=== PATIENT | female | born 1945 | race Caucasian/White ===

== ENCOUNTER 2017-09-08 09:22 | Emergency (ER) | payer OTHER, MEDICARE ==
[~2017-09-08] VITALS: Ht 154.9 cm; Wt 70.3 kg
[~2017-09-08 09:22] MED LIST: GABA100 PO; LISI20 PO; NITR100CA PO; Norco 5-325 Ta1 EACH PO; OMEP20ER PO; PHENA100 PO; PRAV20 PO
[2017-09-08] MEDS ORDERED: ATOR10 PO (09:34)
[2017-09-08 10:30] LABS: Alanine Aminotransfer (ALT/SGP 17 U/L (12-78); Albumin, Blood 3.1 g/dL (3.4-5.0); Albumin/Globulin Ratio 0.7 (0.8-1.8); Alk Phos 57 U/L (50-136); Anion Gap 6 mmol/L (6-16); Aspartate Aminotrans (AST/SGOT 14 U/L (12-37); Bilirubin, Total 0.5 mg/dL (0.1-1.0); Blood Urea Nitrogen 12 mg/dL (8-24); Bun/Creatinine Ratio 13.3 (12.0-20.0); CO2, Blood 27 mmol/L (21-32); Calcium, Blood 9.1 mg/dL (8.5-10.1); Chloride, Blood 104 mmol/L (98-108); Globulin, Blood 4.4 g/dL (2.2-4.0); Glomerular Filtration Rate >60 (60-); Glucose, Blood 142 mg/dL (70-99); Potassium, Blood 3.8 mmol/L (3.5-5.5); Sodium, Blood 137 mmol/L (136-145); Total Protein, Blood 7.5 g/dL (6.4-8.2)
[2017-09-08 12:26] LABS: BASOPHILS ABSOLUTE AUTO 0.07 K/mm3 (0.00-0.23); BASOPHILS PERCENT AUTO 1 % (0-2); EOSINOPHILS ABSOLUTE AUTO 0.04 K/mm3 (0.00-0.68); EOSINOPHILS PERCENT AUTO 1 % (0-6); Hematocrit 42.4 % (33.0-51.0); Hemoglobin 13.6 g/dL (11.5-16.0); IMMATURE GRAN ABSOLUTE AUTO 0.04 K/mm3 (0.00-0.10); IMMATURE GRAN PERCENT AUTO 1 % (0-1); LYMPHOCYTES ABSOLUTE AUTO 1.56 K/mm3 (0.84-5.20); LYMPHOCYTES PERCENT AUTO 20 % (21-46); MONOCYTES ABSOLUTE AUTO 0.76 K/mm3 (0.16-1.47); MONOCYTES PERCENT AUTO 10 % (4-13); Mean Corpuscular HGB 29.7 pg (26.0-34.0); Mean Corpuscular HGB Conc 32.1 g/dL (31.5-36.5); Mean Corpuscular Volume 93 fL (80-100); Mean Platelet Volume 10.7 fL (9.1-12.4); NEUTROPHILS ABSOLUTE AUTO 5.17 K/mm3 (1.96-9.15); NEUTROPHILS PERCENT AUTO 68 % (41-73); Platelet Count 244 K/mm3 (150-400); RDW Coefficient Variation 13.8 % (11.7-14.2); RDW Standard Deviation 47.4 fL (35.1-46.3); Red Blood Cell Count 4.58 M/mm3 (3.80-5.20); White Blood Cell Count 7.64 K/mm3 (4.00-11.30)
== END 2017-09-08 13:35 | disposition home or self-care (01) ==
LOC: ER 09:22
PROVIDERS: Emergency Medicine
DX: R53.1 Weakness (principal); R06.02 Shortness of breath; I10 Essential (primary) hypertension; Z79.899 Other long term (current) drug therapy
CPT/HCPCS: 36415; 71046; 80053; 85025; 85379; 93005; 93010; 99283

== ENCOUNTER 2019-07-09 22:37 | Emergency (ER) | payer OTHER, MEDICARE ==
[~2019-07-09] VITALS: Ht 154.9 cm; Wt 69.8 kg
[~2019-07-09 22:37] MED LIST changes: +ATOR10 PO; +PRAV20; +Protonix40 MG PO
[2019-07-10 00:03] LABS: BASOPHILS ABSOLUTE AUTO 0.05 K/mm3 (0.00-0.23); BASOPHILS PERCENT AUTO 0 % (0-2); EOSINOPHILS ABSOLUTE AUTO 0.01 K/mm3 (0.00-0.68); EOSINOPHILS PERCENT AUTO 0 % (0-6); Hematocrit 45.3 % (33.0-51.0); Hemoglobin 14.4 g/dL (11.5-16.0); IMMATURE GRAN ABSOLUTE AUTO 0.08 K/mm3 (0.00-0.10); IMMATURE GRAN PERCENT AUTO 0 % (0-1); LYMPHOCYTES ABSOLUTE AUTO 1.31 K/mm3 (0.84-5.20); LYMPHOCYTES PERCENT AUTO 7 % (21-46); MONOCYTES PERCENT AUTO 9 % (4-13); Mean Corpuscular HGB Conc 31.8 g/dL (31.5-36.5); Mean Corpuscular Volume 94 fL (80-100); Mean Platelet Volume 10.4 fL (9.1-12.4); NEUTROPHILS ABSOLUTE AUTO 15.81 K/mm3 (1.96-9.15); NEUTROPHILS PERCENT AUTO 83 % (41-73); Platelet Count 244 K/mm3 (150-400); RDW Coefficient Variation 13.6 % (11.7-14.2); RDW Standard Deviation 47.8 fL (35.1-46.3); White Blood Cell Count 18.96 K/mm3 (4.00-11.30)
[2019-07-10 00:20] LABS: Alanine Aminotransfer (ALT/SGP 27 U/L (12-78); Albumin, Blood 3.3 g/dL (3.4-5.0); Albumin/Globulin Ratio 0.8 (0.8-1.8); Alk Phos 77 U/L (50-136); Anion Gap 7 mmol/L (6-16); Aspartate Aminotrans (AST/SGOT 19 U/L (12-37); Bilirubin, Total 0.4 mg/dL (0.1-1.0); Blood Urea Nitrogen 17 mg/dL (8-24); Bun/Creatinine Ratio 19.8 (12.0-20.0); CO2, Blood 25 mmol/L (21-32); Calcium, Blood 9.4 mg/dL (8.5-10.1); Chloride, Blood 108 mmol/L (98-108); Creatinine, Blood 0.86 mg/dL (0.40-1.00); Globulin, Blood 4.4 g/dL (2.2-4.0); Glomerular Filtration Rate >60 (60-); Glucose, Blood 131 mg/dL (70-99); Potassium, Blood 3.4 mmol/L (3.5-5.5); Sodium, Blood 140 mmol/L (136-145); Total Protein, Blood 7.7 g/dL (6.4-8.2)
[2019-07-10] MEDS ORDERED: Zofran4 MG PO (02:28)
== END 2019-07-10 02:45 | disposition home or self-care (01) ==
LOC: ER 22:37
PROVIDERS: Physician Assistant
DX: R11.2 Nausea with vomiting, unspecified (principal); R19.7 Diarrhea, unspecified; I10 Essential (primary) hypertension; Z79.899 Other long term (current) drug therapy
CPT/HCPCS: 36415; 80053; 83690; 85025; 96374; 99283-25; A9270-GY; J2405

== ENCOUNTER 2021-12-20 09:40 | Day surgery (SDC) | payer MEDICARE, OTHER ==
[2021-12-17 12:33] LABS: BASOPHILS ABSOLUTE AUTO 0.09 K/mm3 (0.00-0.23); BASOPHILS PERCENT AUTO 1 % (0-2); EOSINOPHILS ABSOLUTE AUTO 0.04 K/mm3 (0.00-0.68); EOSINOPHILS PERCENT AUTO 1 % (0-6); Hematocrit 42.7 % (33.0-51.0); Hemoglobin 13.9 g/dL (11.5-16.0); IMMATURE GRAN ABSOLUTE AUTO 0.02 K/mm3 (0.00-0.10); IMMATURE GRAN PERCENT AUTO 0 % (0-1); LYMPHOCYTES ABSOLUTE AUTO 1.84 K/mm3 (0.84-5.20); LYMPHOCYTES PERCENT AUTO 29 % (21-46); MONOCYTES ABSOLUTE AUTO 0.81 K/mm3 (0.16-1.47); MONOCYTES PERCENT AUTO 13 % (4-13); Mean Corpuscular HGB 29.9 pg (26.0-34.0); Mean Corpuscular HGB Conc 32.6 g/dL (31.5-36.5); Mean Corpuscular Volume 92 fL (80-100); Mean Platelet Volume 10.9 fL (9.1-12.4); NEUTROPHILS ABSOLUTE AUTO 3.49 K/mm3 (1.96-9.15); NEUTROPHILS PERCENT AUTO 56 % (41-73); Platelet Count 251 K/mm3 (150-400); RDW Coefficient Variation 13.7 % (11.7-14.2); RDW Standard Deviation 46.5 fL (35.1-46.3); Red Blood Cell Count 4.65 M/mm3 (3.80-5.20); White Blood Cell Count 6.29 K/mm3 (4.00-11.30)
[2021-12-17 14:05] LABS: Bun/Creatinine Ratio 16.9 (12.0-20.0); Calcium, Blood 9.7 mg/dL (8.5-10.1); Creatinine, Blood 0.83 mg/dL (0.40-1.00); Potassium, Blood 4.1 mmol/L (3.5-5.5)
[~2021-12-20] VITALS: Ht 154.9 cm; Wt 69.7 kg
[~2021-12-20 09:40] MED LIST changes: +Zofran4 MG PO
--- NOTE | 2021-12-20 12:21 | NUR ---
Surgical site prepped with 2% Chlorhexidine cloth wipe. History, Chart, Medications and Allergies reviewed before start of procedure.Pre-Op teaching done. Pt verbalizes understanding. Lungs clear T/O to Auscultation.
--- NOTE | 2021-12-20 18:35 | NUR ---
PT ARRIVE TO FLOOR AT 1830. 4 LAP SITES TO ABD WITH DERMABOND, CDI. ABD BINDER PLACED ON PATIENT UPON ARRIVAL. PT C/O MINOR PAIN AT THIS TIME. WARM BLANKETS AND HEATING PAD PROVIDED TO PATIENT.
[2021-12-21 04:53] LABS: BASOPHILS ABSOLUTE AUTO 0.01 K/mm3 (0.00-0.23); BASOPHILS PERCENT AUTO 0 % (0-2); EOSINOPHILS PERCENT AUTO 0 % (0-6); Hematocrit 36.7 % (33.0-51.0); Hemoglobin 12.1 g/dL (11.5-16.0); IMMATURE GRAN ABSOLUTE AUTO 0.07 K/mm3 (0.00-0.10); IMMATURE GRAN PERCENT AUTO 1 % (0-1); LYMPHOCYTES ABSOLUTE AUTO 1.13 K/mm3 (0.84-5.20); LYMPHOCYTES PERCENT AUTO 9 % (21-46); MONOCYTES ABSOLUTE AUTO 1.51 K/mm3 (0.16-1.47); MONOCYTES PERCENT AUTO 12 % (4-13); Mean Corpuscular HGB 30.2 pg (26.0-34.0); Mean Corpuscular Volume 92 fL (80-100); Mean Platelet Volume 10.6 fL (9.1-12.4); NEUTROPHILS ABSOLUTE AUTO 9.64 K/mm3 (1.96-9.15); NEUTROPHILS PERCENT AUTO 78 % (41-73); Platelet Count 220 K/mm3 (150-400); RDW Coefficient Variation 13.6 % (11.7-14.2); Red Blood Cell Count 4.01 M/mm3 (3.80-5.20); White Blood Cell Count 12.36 K/mm3 (4.00-11.30)
--- NOTE | 2021-12-21 06:23 | NUR ---
FORGE TENDER SUMMARY NO ACUTE CHANGES THROUGH THE NIGHT. PT POD 0 LAP HYSTER. LAP SITES ON ABD X4 C/D/I WITH ABD BINDER OVER TOP. MEDICATED FOR HEADACHE X1 WITH IBUPROFEN THIS AM. PT HAD SMALL AMOUNT OF DRAINAGE TO ROXANNE PAD. PT SLEPT WELL MOST OF THE NIGHT. VSS, WILL CONTINUE TO MONITOR.
[2021-12-21] MEDS ORDERED: IBUP400 PO (12:42)
[2021-12-21] MEDS ORDERED: PRAV20 PO (12:42)
[2021-12-21] MEDS ORDERED: PROM25 PO (12:43)
[2021-12-21] MEDS ORDERED: Percocet 5-3251 EACH PO (12:43)
--- NOTE | 2021-12-21 13:55 | NUR ---
DISCHARGE: PT ABLE TO VOID, AND EAT, MINIMAL PAIN AND INDEPENDENT IN ROOM. PACKET PRINTED AND PT EDUCATED. X2 IV'S DC'D WNL. PT LEFT UNIT ON FOOT WITH FRIEND AT ABOUT 1330.
== END 2021-12-21 14:30 | disposition home or self-care (01) ==
LOC: SURS 09:40 → ORSCMMR 09:40 → ORD 11:00 → ORSCMMR 11:00 → SURS 18:15 → ORSCMMR 12-21 14:30
PROVIDERS: Obstetrics & Gynecology
PROC: 0DNU4ZZ Release Omentum, Percutaneous Endoscopic Approach (ICD-10-PCS; principal; 2021-12-20 11:00)
PROC: 0UT94ZZ Resection of Uterus, Percutaneous Endoscopic Approach (ICD-10-PCS; principal; 2021-12-20 11:00)
PROC: 8E0W4CZ Robotic Assisted Procedure of Trunk Region, Percutaneous Endoscopic Approach (ICD-10-PCS; principal; 2021-12-20 11:00)
PROC: 0UT24ZZ Resection of Bilateral Ovaries, Percutaneous Endoscopic Approach (ICD-10-PCS; principal; 2021-12-20 11:00)
PROC: 0UT74ZZ Resection of Bilateral Fallopian Tubes, Percutaneous Endoscopic Approach (ICD-10-PCS; principal; 2021-12-20 11:00)
DX: D27.0 Benign neoplasm of right ovary (principal); N83.292 Other ovarian cyst, left side; D25.1 Intramural leiomyoma of uterus; D25.9 Leiomyoma of uterus, unspecified; N84.0 Polyp of corpus uteri; N94.89 Other specified conditions associated with female genital organs and menstrual cycle; K66.0 Peritoneal adhesions (postprocedural) (postinfection); I10 Essential (primary) hypertension; K21.9 Gastro-esophageal reflux disease without esophagitis; E11.9 Type 2 diabetes mellitus without complications; E78.5 Hyperlipidemia, unspecified; Z79.899 Other long term (current) drug therapy
CPT/HCPCS: 58571; 49329; S2900; 36415; 80048; 85025; 86850; 86900; 86901; 88307; A9270; J0690; J1100; J1885; J2370; J2405; J2704; J2765; J3010; J7120

== ENCOUNTER 2024-03-29 09:59 | Day surgery (SDC) | payer MEDICARE, OTHER ==
[2024-03-29] VITALS (11 sets, daily range): BP systolic 98–141; BP diastolic 58–79
[~2024-03-29] VITALS: Ht 149.9 cm; Wt 69.7 kg
[~2024-03-29 09:59] MED LIST changes: +ATOR20 PO; +Acetaminophen 500 MG Tab PO SCH; +CeFAZolin Sodium 2,000 MG in NS 100 ML IV SCH; +Chlorhexidine Mouth Care 15 ML UDC MT SCH; +FISH OIL PO; +IBUP400 PO; +Lactated Ringer's 1,000 ML IV SCH; +Lisinopril-Hct1 EAC4 PO; +MULVITA PO; +OxyCODONE HCL 10 MG TABCR PO SCH; +PRAZ1 PO; +PROM25 PO; +Percocet 5-3251 EACH PO; +Ropivacaine 0.5% HCl/Pf 123.125 MG,EPINEPHrine HCL 0.25 MG,Ketorolac Tromethamine 15 MG... INFIL SCH; +Tranexamic Acid 100 ML IV SCH; +VITAMIN B12500 MCG PO; +VITAMIN D310 MC4 PO
[2024-03-29] MEDS ORDERED: Promethazine HCl 25 MG Tab PO PRN (11:40)
[2024-03-29] MEDS ORDERED: Prazosin HCl 1 MG Cap PO PRN (11:40)
[2024-03-29] MEDS ORDERED: Bisacodyl 10 MG Supp PR PRN (11:40)
[2024-03-29] MEDS ORDERED: OxyCODONE HCL 5 MG TAB PO PRN ×2 (11:40→11:45)
[2024-03-29] MEDS ORDERED: Metoclopramide HCl 5MG / ML 2ML Vial IV PRN (11:45)
[2024-03-29] MEDS ORDERED: Magnesium Hydroxide Conc 10 ML UDC PO PRN (11:45)
[2024-03-29] MEDS ORDERED: Ondansetron HCl 2 MG / ML 2ML Vial IV PRN (11:45)
[2024-03-29] MEDS ORDERED: Lactated Ringer's 1,000 ML IV SCH (11:45)
[2024-03-29] MEDS ORDERED: FLU VACC TS2024-25(6MOS UP)/PF 45 MCG/0.5 ML SYRINGE IM SCH (11:50)
[2024-03-29] MEDS ORDERED: HYDROmorphone HCl/Pf 1MG SYR IV PRN (11:50)
[2024-03-29] MEDS ORDERED: propofoL 60 ML IV ONE (11:51)
[2024-03-29] MEDS ORDERED: FentaNYL Citrate 50 MCG/ML 2 ML Injection ONE (11:51)
--- NOTE | 2024-03-29 11:52 | NUR ---
PT DENTURES TAKEN TO PACU FOR SAFEKEEPING. PT OTHER BELONGINGS PLACED UNDERNEATH GURNEY FOR SAFEKEEPING.
[2024-03-29] MEDS ORDERED: DiphenhydrAMINE HCL 25 MG Cap PO PRN (11:55)
[2024-03-29] MEDS ORDERED: ePHEDrine Sulfate 50 MG/ML 1ML Injection ONE (12:04)
[2024-03-29] MEDS ORDERED: Glycopyrrolate 0.2 MG/ML 5ML VIAL ONE (12:24)
--- NOTE | 2024-03-29 12:36 | NUR ---
03/29/24 1236 Valentino,Callie SPINAL BLOCK COMPLETED BY UPON ENTRY TO OR. PATIENT TOLERATED WELL.
[2024-03-29] MEDS ORDERED: Acetaminophen 500 MG Tab PO SCH (16:00)
[2024-03-29] MEDS ORDERED: Ketorolac Tromethamine 15mg Vial IV SCH (18:00)
--- NOTE | 2024-03-29 19:17 | NUR ---
SHIFT SUMMARY WAS ABLE TO WORK w/ THERAPY AFTER SPINAL WORE OFF. DENIES PAIN. ABLE TO VOID.
[2024-03-29] MEDS ORDERED: CeFAZolin Sodium 2,000 MG in NS 100 ML IV SCH (20:00)
[2024-03-29] MEDS ORDERED: Docusate Sodium 100 MG Cap PO SCH (21:00)
[2024-03-30 00:01] VITALS: BP 118/59
[2024-03-30 03:05] VITALS: BP 129/68
--- NOTE | 2024-03-30 04:20 | NUR ---
SHIFT SUMMARY POD 1 R TKA. NO ACUTE CHANGES. VSS, CPAP IN USE c CONT BIOX. TOLERATING ORALS. VOIDING IND. AMBULATES USING FWW c SBA. PT REPORTS PAIN TOLERABLE. ANTICIPATED DISCHARGE LATER TODAY. CALL LIGHT IN REACH, BED IN LOWEST POSITION, WILL REPORT TO DAY RN.
[2024-03-30 04:40] LABS: BASOPHILS ABSOLUTE AUTO 0.08 K/mm3 (0.00-0.23); BASOPHILS PERCENT AUTO 1 % (0-2); EOSINOPHILS ABSOLUTE AUTO 0.13 K/mm3 (0.00-0.68); EOSINOPHILS PERCENT AUTO 1 % (0-6); Hematocrit 33.8 % (33.0-51.0); IMMATURE GRAN ABSOLUTE AUTO 0.03 K/mm3 (0.00-0.10); IMMATURE GRAN PERCENT AUTO 0 % (0-1); LYMPHOCYTES ABSOLUTE AUTO 1.91 K/mm3 (0.84-5.20); LYMPHOCYTES PERCENT AUTO 21 % (21-46); MONOCYTES ABSOLUTE AUTO 1.25 K/mm3 (0.16-1.47); MONOCYTES PERCENT AUTO 14 % (4-13); Mean Corpuscular HGB 29.6 pg (26.0-34.0); Mean Corpuscular HGB Conc 32.5 g/dL (31.5-36.5); Mean Corpuscular Volume 91 fL (80-100); Mean Platelet Volume 10.2 fL (9.1-12.4); NEUTROPHILS ABSOLUTE AUTO 5.87 K/mm3 (1.96-9.15); NEUTROPHILS PERCENT AUTO 63 % (41-73); Platelet Count 184 K/mm3 (150-400); RDW Standard Deviation 46.7 fL (35.1-46.3); Red Blood Cell Count 3.71 M/mm3 (3.80-5.20); White Blood Cell Count 9.27 K/mm3 (4.00-11.30)
[2024-03-30 05:06] LABS: Bun/Creatinine Ratio 13.8 (12.0-20.0); Calcium, Blood 9.1 mg/dL (8.5-10.1); Creatinine, Blood 1.16 mg/dL (0.40-1.00); Potassium, Blood 4.3 mmol/L (3.5-5.5)
[2024-03-30] MEDS ORDERED: Omeprazole 20 MG CapCR PO SCH (06:00)
[2024-03-30 07:23] VITALS: BP 133/72
[2024-03-30] MEDS ORDERED: HydroCHLOROthiazide 25 mg Tab PO SCH (09:00)
[2024-03-30] MEDS ORDERED: Lisinopril 10 MG Tab PO SCH (09:00)
[2024-03-30] MEDS ORDERED: Aspirin 81 MG Chew PO SCH (09:00)
--- NOTE | 2024-03-30 10:20 | NUR ---
DISCHARGE SUMMARY POD1 R TKA, A/OX4, VSS,TOLERATING PO, PAIN WELL MANAGED, AMBULATING WELL, VOIDING INDEPENDENTLY, IV ACCESS REMOVED WHILE DISCUSSING DC INSTRUCTIONS. GOKUL C/D/I. DISCUSSED DISCHARGE INSTRUCTIONS INCLUDING HOME CARE, MEDICATIOONS, AND FOLLOW UP APPOINTMENTS. NO QUESTIONS AT THIS TIME. ESCORTED OUT VIA WC TO PRIVATE AUTO TO GO HOME.
== END 2024-03-30 10:10 | disposition home or self-care (01) ==
LOC: ORSCMMR 09:59 → SURS 14:01 → ORSCMMR 15:30 → ORD 04-12 13:00 → ORSCMMR 04-12 15:15 → ORD 04-12 15:30
PROVIDERS: Orthopaedic Surgery
PROC: 0SRC0JA Replacement of Right Knee Joint with Synthetic Substitute, Uncemented, Open Approach (ICD-10-PCS; principal; 2024-03-29 12:00)
DX: M17.11 Unilateral primary osteoarthritis, right knee (principal); E78.5 Hyperlipidemia, unspecified; I10 Essential (primary) hypertension; G47.33 Obstructive sleep apnea (adult) (pediatric); Z87.891 Personal history of nicotine dependence; Z79.899 Other long term (current) drug therapy
CPT/HCPCS: 27447; 0055T; 36415; 73560-RT; 80048; 83735; 85025; 94762; 97110; 97116; 97161; 97530; A9270; C1713; C1776; J0171; J0690; J0735; J1885; J2405; J2704; J2795; J3010; J7120

== ENCOUNTER 2024-07-12 09:14 | Emergency (ER) | payer OTHER ==
[~2024-07-12] VITALS: Ht 154.9 cm; Wt 64.0 kg
[~2024-07-12 09:14] MED LIST changes: -Acetaminophen 500 MG Tab PO SCH; -CeFAZolin Sodium 2,000 MG in NS 100 ML IV SCH; -Chlorhexidine Mouth Care 15 ML UDC MT SCH; -Lactated Ringer's 1,000 ML IV SCH; -OxyCODONE HCL 10 MG TABCR PO SCH; -Ropivacaine 0.5% HCl/Pf 123.125 MG,EPINEPHrine HCL 0.25 MG,Ketorolac Tromethamine 15 MG... INFIL SCH; -Tranexamic Acid 100 ML IV SCH
[2024-07-12 10:17] LABS: BASOPHILS ABSOLUTE AUTO 0.09 K/mm3 (0.00-0.23); BASOPHILS PERCENT AUTO 1 % (0-2); EOSINOPHILS ABSOLUTE AUTO 0.05 K/mm3 (0.00-0.68); EOSINOPHILS PERCENT AUTO 1 % (0-6); Hematocrit 40.8 % (33.0-51.0); Hemoglobin 13.6 g/dL (11.5-16.0); IMMATURE GRAN ABSOLUTE AUTO 0.03 K/mm3 (0.00-0.10); IMMATURE GRAN PERCENT AUTO 0 % (0-1); LYMPHOCYTES ABSOLUTE AUTO 1.71 K/mm3 (0.84-5.20); LYMPHOCYTES PERCENT AUTO 20 % (21-46); MONOCYTES ABSOLUTE AUTO 0.98 K/mm3 (0.16-1.47); MONOCYTES PERCENT AUTO 12 % (4-13); Mean Corpuscular HGB 29.6 pg (26.0-34.0); Mean Corpuscular HGB Conc 33.3 g/dL (31.5-36.5); Mean Corpuscular Volume 89 fL (80-100); Mean Platelet Volume 10.6 fL (9.1-12.4); NEUTROPHILS ABSOLUTE AUTO 5.67 K/mm3 (1.96-9.15); NEUTROPHILS PERCENT AUTO 66 % (41-73); Platelet Count 250 K/mm3 (150-400); RDW Coefficient Variation 13.7 % (11.7-14.2); RDW Standard Deviation 44.2 fL (35.1-46.3); White Blood Cell Count 8.53 K/mm3 (4.00-11.30)
[2024-07-12 13:17] LABS: Albumin, Blood 3.4 g/dL (3.4-5.0); Albumin/Globulin Ratio 0.8 (0.8-1.8); Bilirubin, Total 0.7 mg/dL (0.1-1.0); Bun/Creatinine Ratio 15.1 (12.0-20.0); Calcium, Blood 10.5 mg/dL (8.5-10.1); Creatinine, Blood 0.99 mg/dL (0.40-1.00); Globulin, Blood 4.5 g/dL (2.2-4.0); Total Protein, Blood 7.9 g/dL (6.4-8.2)
[2024-07-12 14:18] VITALS: BP 128/89
== END 2024-07-12 14:20 | disposition home or self-care (01) ==
LOC: ER 09:14
PROVIDERS: Physician Assistant; Student in an Organized Health Care Education/Training Program
DX: R10.32 Left lower quadrant pain (principal); I10 Essential (primary) hypertension; Z87.891 Personal history of nicotine dependence; Z79.899 Other long term (current) drug therapy
CPT/HCPCS: 80053; 83690; 85025; 99283

== ENCOUNTER 2024-07-17 12:43 | Emergency (ER) | payer OTHER ==
[~2024-07-17] VITALS: Ht 152.4 cm; Wt 64.0 kg
[2024-07-17 13:02] VITALS: BP 142/89
== END 2024-07-17 14:46 | disposition left against medical advice (07) ==
LOC: ER 12:43
DX: N90.7 Vulvar cyst (principal); Z79.899 Other long term (current) drug therapy; Z53.21 Procedure and treatment not carried out due to patient leaving prior to being seen by health care provider
CPT/HCPCS: 99281

== ENCOUNTER → 2024-08-16 | Outpatient (CLI) | payer OTHER | END | disposition home or self-care (01) | LOC: LAB SHORT 14:26 → LAB 14:26 | DX: R35.0 Frequency of micturition (principal) | CPT/HCPCS: 87077; 87086; 87186 ==

== ENCOUNTER → 2025-05-16 | Outpatient (CLI) | payer MEDICARE | LOC: LAB 11:10 → LAB SHORT 11:10 | DX: N39.0 Urinary tract infection, site not specified (principal) | CPT/HCPCS: 87077; 87086; 87186 ==

== ENCOUNTER → 2025-06-18 | Outpatient (CLI) | payer MEDICARE | LOC: LAB SHORT 10:19 → LAB 10:19 | DX: N39.0 Urinary tract infection, site not specified (principal) | CPT/HCPCS: 87077; 87086; 87186 ==